=== PATIENT | male | born 1955 | race Caucasian/White ===

== ENCOUNTER 2024-08-15 08:19 | Inpatient (IN) | payer MEDICARE, OTHER ==
[2024-08-15] VITALS (7 sets, daily range): BP systolic 117–130; BP diastolic 78–83; PULSE 88–105; RESP 20–26; TEMP 36.3–36.8; O2SAT 95–99
[~2024-08-15] VITALS: Ht 165.1 cm; Wt 68.0 kg
[2024-08-15] MEDS: ACETYLCYSTEINE 200MG/ML 20% VIAL 4ML INH SCH (00:11)
[~2024-08-15 08:19] MED LIST: ALBU4TAB6 INH; FLUT1DIS3 INH; MONT-39 PO; P20 MT
[2024-08-15] MEDS: ALBUTEROL (0.083%) 2.5MG/3ML NEB HHN STA (08:32)
[2024-08-15 08:43] LABS: BASOPHILS % 0.4 % (0.0-2.0); EOSINOPHILS % 13.2 % (0.0-5.0); HEMATOCRIT. 45.4 % (42.0-52.0); LYMPHOCYTES % 20.2 % (20.0-50.0); MEAN CORPUSCULAR HEMOGLOBIN 30.1 pg (28.0-32.0); MEAN PLATELET VOLUME 8.2 fl (7.4-10.4); MONOCYTES % 7.3 % (2.0-8.0); NEUTROPHILS % 58.9 % (40.0-76.0); PLATELET 292 x1000/uL (130-400); RED BLOOD CELL COUNT 4.98 mill/uL (4.7-6.1); RED CELL DISTRIBUTION WIDTH 13.7 % (11.6-14.6); WHITE BLOOD COUNT 8.1 x1000/uL (4.5-11.0)
[2024-08-15 08:52] LABS: CHLORIDE 109 mEq/L (98-107); POTASSIUM 4.4 mEq/L (3.5-5.1); SODIUM 141 mEq/L (136-145)
[2024-08-15 08:53] LABS: CALCIUM 9.2 mg/dL (8.7-10.4); CARBON DIOXIDE 28 mEq/L (21-32)
[2024-08-15 08:58] LABS: CREATININE 0.8 mg/dL (0.6-1.3); GLUCOSE 116 mg/dL (70-105); UREA NITROGEN BLOOD 9 mg/dL (9-23)
[2024-08-15 09:08] LABS: TROPONIN I HIGH SENSITIVITY < 4 ng/L (3.0-53)
[2024-08-15] MEDS: IPRATROPIUM BROMIDE (0.02%) 0.5MG/2.5ML NEB HHN STA (09:20)
[2024-08-15] MEDS: METHYLPREDNISOLONE SOD SUCC 125MG/2ML (ACT-O-VIAL) IV ONE (10:56)
[2024-08-15] MEDS ORDERED: IOHEXOL-350 100 ML BOTTLE ONE (11:10)
[2024-08-15] MEDS ORDERED: BUDESONIDE 0.5MG/2ML NEB HHN NR (11:15)
[2024-08-15] MEDS ORDERED: DOCUSATE SODIUM 100MG CAPSULE PO PRN (11:15)
[2024-08-15] MEDS ORDERED: ONDANSETRON HCL 4MG/2ML INJ IV PRN (11:15)
[2024-08-15] MEDS ORDERED: DEXTROSE 50% WATER 50ML SYRINGE IV PRN (11:15)
[2024-08-15] MEDS ORDERED: CLONIDINE 0.1MG TABLET PO PRN (11:15)
[2024-08-15] MEDS ORDERED: MAGNESIUM/ALUMINUM HYDROXIDE/SIMETHICONE 30ML UDC PO PRN (11:15)
[2024-08-15] MEDS ORDERED: ACETAMINOPHEN 650MG/20.3ML UDC GT PRN (11:15)
[2024-08-15] MEDS ORDERED: IPRATROPIUM/ALBUTEROL 0.5-3(2.5)MG/3ML NEB HHN PRN (11:15)
[2024-08-15 12:01] LABS: TROPONIN I HIGH SENSITIVITY < 4 ng/L (3.0-53)
[2024-08-15] MEDS: BLOOD SUGAR DIAGNOSTIC STRIP TEST SCH (12:10)
[2024-08-15 13:16] LABS: BG BASE EXCESS -2.2 mmol/L (-2.0-3.0); BG CARBOXYHEMOGLOBIN 0.9 % (0.5-1.5); BG DEOXYHEMOGLOBIN 3.1 % (0.0-5.0); BG FRACTION INSPIRED OXYGEN 36; BG HCO3 ACT 21.9 mmol/L (21.0-28.0); BG METHEMOGLOBIN 0.3 % (0.5-1.5); BG OXYGEN SATURATION 96.9 % (94.0-98.0); BG OXYHEMOGLOBIN 95.7 % (94.0-98.0); BG PCO2 35.9 mmHg (35.0-48.0); BG PH 7.403 (7.350-7.450); BG SAMPLE SITE RIGHT RADIAL; BG TOTAL HEMOGLOBIN 14.6 g/dL (13.5-17.5); BG VENT MODE NASAL CANNULA
[2024-08-15] MEDS: METHYLPREDNISOLONE SOD SUCC 125MG/2ML (ACT-O-VIAL) IV SCH (13:53)
[2024-08-15] MEDS: GUAIFENESIN 200MG/10ML SUGAR FREE UDC PO PRN (13:53)
[2024-08-15] MEDS: AZITHROMYCIN 500MG/250ML 250 ML IV SCH (13:54)
[2024-08-15] MEDS: MAGNESIUM 2 G PREMIX 50 ML IV NR (13:54)
[2024-08-15] MEDS: IPRATROPIUM/ALBUTEROL 0.5-3(2.5)MG/3ML NEB HHN SCH (15:01)
[2024-08-15 16:05] LABS: CREATINE KINASE 59 IU/L (46-171)
[2024-08-15 17:35] LABS: HEPATITIS B SURFACE ANTIGEN NEGATIVE (Negative)
[2024-08-15 17:58] LABS: HEPATITIS C AB NON REACTIVE (Neg) (Negative)
[2024-08-15] MEDS: BUDESONIDE 0.5MG/2ML NEB HHN SCH (19:55)
[2024-08-15] MEDS: FAMOTIDINE 20MG TABLET PO SCH (21:14)
[2024-08-15 21:42] LABS: CLARITY URINE CLEAR (CLEAR); COLOR URINE YELLOW (YELLOW); GLUCOSE URINE 1+ (NEGATIVE); KETONES URINE NEGATIVE (NEGATIVE); LEUKOCYTE ESTERASE URINE NEGATIVE (NEGATIVE); NITRITE URINE NEGATIVE (NEGATIVE); OCCULT BLOOD URINE NEGATIVE (NEGATIVE); PROTEIN URINE NEGATIVE (NEGATIVE); SPECIFIC GRAVITY URINE 1.011 (1.005-1.030); UROBILINOGEN URINE 0.2 E.U./dL (0.2-1.0)
[2024-08-15 21:48] LABS: BACTERIA URINE NONE SEEN; RBC URINE NONE SEEN /hpf (0-2); SQUAMOUS EPITHELIAL CELL URINE RARE /lpf (RARE/1+); WBC URINE NONE SEEN /hpf (0-2)
[2024-08-15 21:54] LABS: *AMPHETAMINES SCREEN URINE NEGATIVE (NEGATIVE); *BARBITURATES SCREEN URINE NEGATIVE (NEGATIVE); *BENZODIAZEPINES SCREEN URINE NEGATIVE (NEGATIVE); *COCAINE SCREEN URINE NEGATIVE (NEGATIVE)
[2024-08-15 21:55] LABS: CANNABINOID URINE SCREEN NEGATIVE (NEGATIVE); ECSTASY MDMA SCREEN URINE NEGATIVE (NEGATIVE); METHADONE URINE SCREEN NEGATIVE (NEGATIVE); OPIATES URINE SCREEN NEGATIVE (NEGATIVE); PHENCYCLIDINE URINE SCREEN NEGATIVE (NEGATIVE)
[2024-08-16] VITALS (12 sets, daily range): BP systolic 114–130; BP diastolic 58–74; PULSE 87–120; RESP 15–22; TEMP 35.8–37.1; O2SAT 95–98
[2024-08-16 00:06] LABS: CREATINE KINASE 58 IU/L (46-171)
[2024-08-16 06:59] LABS: CARBON DIOXIDE 24 mEq/L (21-32); CHLORIDE 103 mEq/L (98-107); POTASSIUM 4.3 mEq/L (3.5-5.1); SODIUM 139 mEq/L (136-145)
[2024-08-16 07:04] LABS: CREATININE 0.8 mg/dL (0.6-1.3); GLUCOSE 175 mg/dL (70-105); TRIGLYCERIDE 74 mg/dL (0-150)
[2024-08-16 07:05] LABS: CHOLESTEROL 186 mg/dL (<200); LDL CHOLESTEROL 129 mg/dL (5-100); UREA NITROGEN BLOOD 13 mg/dL (9-23)
[2024-08-16 07:06] LABS: HDL CHOLESTEROL 55 mg/dL (>55); T4 FREE 1.14 ng/dL (0.89-1.76)
[2024-08-16 07:07] LABS: THYROID STIMULATING HORMONE 0.14 uIU/mL (0.55-4.78)
[2024-08-16] MEDS: ENOXAPARIN 40MG/0.4ML SYR SUBCUT SCH (12:02)
[2024-08-16] MEDS: NICOTINE 14MG PATCH TD SCH (12:03)
[2024-08-16] MEDS: BENZONATATE 100MG CAPSULE PO SCH (12:04)
[2024-08-16] MEDS: MONTELUKAST SODIUM 10MG TABLET PO SCH (18:22)
[2024-08-16] MEDS: METHYLPREDNISOLONE SOD SUCC 40MG/ML (ACT-O-VIAL) IV SCH (21:15)
[2024-08-16] MEDS: ATORVASTATIN CALCIUM 40MG TABLET PO SCH (21:16)
[2024-08-17] VITALS (7 sets, daily range): BP systolic 103–121; BP diastolic 60–70; PULSE 82–109; RESP 16–20; TEMP 36.4–36.6; O2SAT 95–99
[2024-08-17] MEDS: METHYLPREDNISOLONE SOD SUCC 40MG/ML (ACT-O-VIAL) IV SCH (09:13)
[2024-08-17] MEDS ORDERED: LIP40 PO (09:18)
[2024-08-17] MEDS ORDERED: P20 MT (09:18)
[2024-08-17] MEDS ORDERED: FLUT1DIS3 INH (09:21)
== END 2024-08-17 12:00 | disposition home or self-care (01) | DRG 189 ==
LOC: ER 08:19 → 8WST 10:42 → EDBEDREQ 10:45 → EDBEDREQTM 10:45
PROVIDERS: ADMIT Internal Medicine; ATTEND Internal Medicine
DX: J96.01 Acute respiratory failure with hypoxia (principal); J44.1 Chronic obstructive pulmonary disease with (acute) exacerbation; F17.210 Nicotine dependence, cigarettes, uncomplicated; J47.9 Bronchiectasis, uncomplicated; E78.5 Hyperlipidemia, unspecified; D72.10 Eosinophilia, unspecified; R73.9 Hyperglycemia, unspecified; Z87.09 Personal history of other diseases of the respiratory system; Z71.6 Tobacco abuse counseling; Z79.51 Long term (current) use of inhaled steroids
CPT/HCPCS: 36415; 36600; 71045; 71275; 80048; 80061; 80305; 81003; 82375; 82550; 82805; 82962; 83036; 83735; 83880; 84100; 84439; 84443; 84484; 85025; 85379; 86705; 87070; 87340; 93005; 94070; 94640; 94664; 99285; J0456; J1650; J2405; J2919; J3475; J7608; J7626; Q9967